=== PATIENT | male | born 1960 | race Caucasian/White ===

== ENCOUNTER 2016-10-08 16:01 | Emergency (ER) | payer MEDICARE, OTHER ==
[~2016-10-08 16:01] MED LIST: APIDRA100 UNIT/1 SQ; BACTROBAN15 GM TOP; CELEXA40 MG PO; FLUTICASONE PRO16 GM NS; GLUCOTROL5 MG PO; KLONOPIN1 MG PO; MUCINEX600 MG PO; NEURONTIN300 MG PO; ONCE DAILY1 EACH PO; PRAVACHOL20 MG PO; PRILOSEC40 MG PO; VITAMIN C500 M1 PO; WELLBUTRIN XL150 MG PO; ZOFRAN4 MG PO
== END 2016-10-08 18:15 | disposition short-term general hospital (02) ==
LOC: ER 16:01
DX: S81.812A Laceration without foreign body, left lower leg, initial encounter (principal); E11.9 Type 2 diabetes mellitus without complications; I10 Essential (primary) hypertension; F31.9 Bipolar disorder, unspecified; F17.200 Nicotine dependence, unspecified, uncomplicated; Z79.4 Long term (current) use of insulin; Z79.82 Long term (current) use of aspirin; Z79.899 Other long term (current) drug therapy; W27.0XXA Contact with workbench tool, initial encounter; Y92.009 Unspecified place in unspecified non-institutional (private) residence as the place of occurrence of the external cause
CPT/HCPCS: 36415; 96361; 96365; 96375